=== PATIENT | female | born 1940 | race Caucasian/White ===

== ENCOUNTER 2018-05-31 12:59 | Observation (INO) | payer MEDICARE, BC ==
[~2018-05-31] VITALS: Ht 160 cm; Wt 68.5 kg
[2018-05-31] VITALS (10 sets, daily range): BP systolic 131–161; BP diastolic 54–69
--- NOTE | 2018-05-31 13:20 | NUR ---
PT DIRECT ADMITT FORM FOR ANEMIA R/O GI BLEED, PT ADMITTED VIA W/C STOOD AND TRANSFERRED TO SCALE THEN INTO BED WITH MIN ASSIST, ADMISSION ASSESSMENT COMPLETED SEE INTERVENTIONS. LUNGS CLEAR NO SHORTNESS OF BREATH NOTED ABD SOFT AND BS ACTIV PT DENIES BLACK STOOLS STATES LAST BM WAS YESTERDAY AND IT WAS BROWN, STATES HISTORY OF ANEMIA WITH IRON SUPPLEMENTS IN PAST BUT STATES SHE HASN'T BEEN TAKING THEM FOR A FEW WEEKS, SKIN WARM DRY AND INTACT WITH NO BREAKDOWN, SOME EDEMA NOTED TO FINGERS PT STATES ITS GOUT AND SHE TAKES MEDICATION FOR IT, ALSO STATES SHE RECENTLY MOVED HERE FROM [place] AND HAS HAD NO ENERGY AND "NEEDS A REST AFTER WALKING TO THE BATHROOM" ORIENTED TO ROOM AND UNIT, SAFETY MEASURES REINFORCED, CALL ARCINIEGA WITHIN REACH, WILL CONTINUE TO MONITOR
[2018-05-31 14:41] LABS: HEMATOCRIT 26.7 % (37.0-47.0); HEMOGLOBIN 7.9 g/dl (12.0-16.0); IMMATURE GRANULOCYTES 0.7 % (0.0-5.0); MEAN CELL VOLUME 75.9 fL CALC (80.0-100.0); MEAN CORPUSCULAR HGB 22.4 pG CALC (26.0-32.0); MEAN CORPUSCULAR HGB CONC 29.6 g/L CALC (32.0-36.0); NEUT# 5.49 thou/uL (2.00-7.15); RED BLOOD COUNT 3.52 mill/uL (4.20-5.60); RED CELL DISTRI WIDTH 15.7 % (11.5-15.5)
[2018-05-31 14:53] LABS: CREATININE 2.4 mg/dL (0.5-1.0); POTASSIUM 4.9 mmol/l (3.5-5.1)
--- NOTE | 2018-05-31 15:00 | NUR ---
PT RESTING OFFERS NO NEW COMPLAINTS CALL IN TO FOR DIET CHANGE, WILL CONTINUE TO MONITOR.
--- NOTE | 2018-05-31 17:04 | NUR ---
IV ACCESS OBTAINED EARLIER AND LABOWRK OBTAINED INCLUDING TYPE AND SCREEN, PT TOLERATED WELL, 1ST UNIT PRBC'S STARTED AT THIS TIME AFTER CONSENT OBTAINED.
--- NOTE | 2018-05-31 19:10 | NUR ---
1ST UNIT COMPLETE, DENTAL SALES REPRESENTATIVE TO LOCATE BSC, REPORT GIVEN TO ONCOMING NURSE ANUSHA Pierce
--- NOTE | 2018-05-31 19:30 | NUR ---
PT RESTING IN BED. VISITOR IN ROOM. PT IS ALERT AND ORIENTED X3. SHIFT ASSESSMENT COMPLETED AT THIS TIME. LASIX GIVEN PER MAR. 2ND UNIT OF PRBCS STARTED PER TTRANSFUSION RECORD WELL. IV PATENT. PLAN OF CARE REVIEWED WTIH PATIENT.CALL LIGHT IN REACH. WILL CONTINUE TO MONITOR.
--- NOTE | 2018-05-31 19:38 | NUR ---
PT STATES SHE TOOK HER GABAPENTIN FROM HOME PRIOR TO ARRIVAL TO HOSPITAL CAUSE SHE WANTED TO MAKE SURE SHE GOT IT TODAY BECAUSE SHE CAN'T SLEEP WITHOUT IT. EDUCATED REGARDING THAT MEDICATION IS ORDERED AND SCHEDULED FOR [address] SO SHE WILL GET TOMORROW IF STILL INPATIENT
--- NOTE | 2018-05-31 21:15 | NUR ---
2ND UNIT OF PRBCS COMPLETED. PT TOLERATED TRANSFUSION WELL VERBALIZES NO S/SX OF REACTION AT THIS TIME. CALL LIGHT IN REACH. WILL CONTINUE TO MONITOR.
--- NOTE | 2018-05-31 23:55 | NUR ---
PT RESTING IN BED WITH EYES CLOSED. RESP ARE EVEN AND UNLABORED. NO DISTRESS NOTED. CALL LIGHT IN REACH. WILL CONTINUE TO MONITOR.
--- NOTE | 2018-06-01 03:57 | NUR ---
PT RESTING IN BED WITH EYES CLOSED. RESP ARE EVEN AND UNLABORED. NO DISTRESS NOTED. CALL LIGHT IN REACH. WILL CONTINUE TO MONITOR.
[2018-06-01 04:26] VITALS: BP 127/68
[2018-06-01 05:27] LABS: HEMATOCRIT 30.8 % (37.0-47.0); HEMOGLOBIN 9.7 g/dl (12.0-16.0); IMMATURE GRANULOCYTES 0.7 % (0.0-5.0); MEAN CORPUSCULAR HGB 24.3 pG CALC (26.0-32.0); MEAN CORPUSCULAR HGB CONC 31.5 g/L CALC (32.0-36.0); NEUT# 3.72 thou/uL (2.00-7.15); RED CELL DISTRI WIDTH 15.6 % (11.5-15.5)
[2018-06-01 05:28] LABS: ALBUMIN 3.8 g/dL (3.2-5.0); BILIRUBIN, TOTAL 0.9 mg/dL (0.0-1.4); CREATININE 2.2 mg/dL (0.5-1.0); POTASSIUM 4.4 mmol/l (3.5-5.1); TOTAL PROTEIN 6.8 g/dL (6.3-8.2)
--- NOTE | 2018-06-01 07:35 | NUR ---
PT RESTING IN BED, ALERT AND ORIENTED, ASKING/DEMANDING FOR IVF TO BE STOPPED, DONE PER PT REQUEST, PT TAKING PO FLUIDS AND DIET WELL, NO S/S OF ACTIVE BLEED, DENIES PAIN OR DISCOMFORT, SKIN INTACT, PT ASKING ABOUT D/C TODAY, EDUCATED REGARDING D/C PROCESS, PT VERBALIZES UNDERSTANDING, CALL ARCINIEGA WITHIN REACH, WILL CONTINUE TO MONITOR.
[2018-06-01 08:03] VITALS: BP 148/64
--- NOTE | 2018-06-01 08:53 | NUR ---
INTO SEE PATIENT, PLAN OF CARE DISCUSSED INCLDUING D/C TODAY WITH FOLLOW UP LAB WIRK AND VISIT TO NEXT WEEK, ALL QUESTIONS ANSWERED, CALL ARCINIEGA WITHIN REACH, WILL CONTINUE TO MONITOR.
[2018-06-01] MEDS ORDERED: LEVOTHYROXIN50 MC1 PO (09:34)
[2018-06-01] MEDS ORDERED: VIBERZI100 MG PO (09:37)
[2018-06-01] MEDS ORDERED: ESOMEPRAZOLE MA40 MG PO (09:38)
[2018-06-01] MEDS ORDERED: COLCHICINE0.6 M2 PO (09:39)
[2018-06-01] MEDS ORDERED: LOPRESSOR50 M2 PO (09:40)
[2018-06-01] MEDS ORDERED: PROBENECID500 MG PO (09:40)
[2018-06-01] MEDS ORDERED: GRALISE300 MG PO (10:51)
--- NOTE | 2018-06-01 12:15 | NUR ---
PT RESTING AWAITING SPOUSE FOR TRANSPORT HOME, OFFERS NO NEW COMPLAINTS, CALL ARCINIEGA WITHIN REACH
--- NOTE | 2018-06-01 14:27 | NUR ---
Discharge instructions given. Patient verbalizes understanding of same. Discharged in stable condition via Wheelchair to Home with spouse. All belongings sent with pt.
== END 2018-06-01 14:27 | disposition home or self-care (01) ==
LOC: MS2 12:59
PROVIDERS: ADMIT Internal Medicine Geriatric Medicine; ATTEND Internal Medicine Geriatric Medicine
PROC: 30233N1 Transfusion of Nonautologous Red Blood Cells into Peripheral Vein, Percutaneous Approach (ICD-10-PCS; principal; 2018-05-31)
PROC: 30233N1 Transfusion of Nonautologous Red Blood Cells into Peripheral Vein, Percutaneous Approach (ICD-10-PCS; 2018-05-31)
DX: D64.9 Anemia, unspecified (principal); I10 Essential (primary) hypertension; I25.10 Atherosclerotic heart disease of native coronary artery without angina pectoris; M19.90 Unspecified osteoarthritis, unspecified site; E03.9 Hypothyroidism, unspecified; E78.5 Hyperlipidemia, unspecified; K21.9 Gastro-esophageal reflux disease without esophagitis; K27.9 Peptic ulcer, site unspecified, unspecified as acute or chronic, without hemorrhage or perforation
CPT/HCPCS: P9016

== ENCOUNTER 2018-09-06 15:16 | Observation (INO) | payer MEDICARE, BC ==
[~2018-09-06] VITALS: Ht 160 cm; Wt 68.7 kg
[2018-09-06] VITALS (10 sets, daily range): BP systolic 136–168; BP diastolic 64–72
[~2018-09-06 15:16] MED LIST: COLCHICINE0.6 M2 PO; ESOMEPRAZOLE MA40 MG PO; GRALISE300 MG PO; LEVOTHYROXIN50 MC1 PO; LOPRESSOR50 M2 PO; PROBENECID500 MG PO; VIBERZI100 MG PO
[2018-09-06 16:20] LABS: HEMATOCRIT 31.7 % (37.0-47.0); HEMOGLOBIN 9.2 g/dl (12.0-16.0); IMMATURE GRANULOCYTES 0.4 % (0.0-5.0); MEAN CELL VOLUME 74.4 fL CALC (80.0-100.0); MEAN CORPUSCULAR HGB 21.6 pG CALC (26.0-32.0); NEUT# 5.47 thou/uL (2.00-7.15); RED BLOOD COUNT 4.26 mill/uL (4.20-5.60); RED CELL DISTRI WIDTH 16.4 % (11.5-15.5)
[2018-09-06 16:23] LABS: URINE BILIRUBIN - DIPSTICK NEGATIVE (NEGATIVE); URINE BLOOD DIPSTICK NEGATIVE (NEGATIVE); URINE COLOR YELLOW; URINE GLUCOSE - DIPSTICK NEGATIVE (NEGATIVE); URINE KETONE NEGATIVE (NEGATIVE); URINE LEUK ESTERASE NEGATIVE (NEGATIVE); URINE NITRITE - DIPSTICK NEGATIVE (Negative); URINE PH 5.5 (4.5-8.0); URINE PROTEIN - DIPSTICK 30 mg/dL (NEG-TRACE); URINE UROBILINOGEN - DIPSTICK 0.2 E.U./dL (0.2)
[2018-09-06 16:27] LABS: URINE RBC 0-2 RBC/hpf (0-5); URINE SQUAMOUS EPITHELIAL CELL FEW EPI/hpf (0-FEW); URINE WBC 0-2 WBC/hpf (0-5)
[2018-09-06 16:31] LABS: CREATININE 1.8 mg/dL (0.5-1.0); POTASSIUM 4.4 mmol/l (3.5-5.1)
[2018-09-07 00:20] VITALS: BP 136/69
[2018-09-07 04:25] VITALS: BP 133/73
[2018-09-07 05:52] LABS: HEMATOCRIT 35.3 % (37.0-47.0); IMMATURE GRANULOCYTES 0.7 % (0.0-5.0); MEAN CELL VOLUME 75.3 fL CALC (80.0-100.0); MEAN CORPUSCULAR HGB 23.5 pG CALC (26.0-32.0); MEAN CORPUSCULAR HGB CONC 31.2 g/L CALC (32.0-36.0); NEUT# 5.41 thou/uL (2.00-7.15); RED BLOOD COUNT 4.69 mill/uL (4.20-5.60); RED CELL DISTRI WIDTH 16.2 % (11.5-15.5)
[2018-09-07 06:09] LABS: ALBUMIN 4.1 g/dL (3.2-5.0); BILIRUBIN, TOTAL 1.3 mg/dL (0.0-1.4); CHOLESTEROL HDL RATIO 3.7 (<4.4 (CALC)); CREATININE 1.7 mg/dL (0.5-1.0); POTASSIUM 4.1 mmol/l (3.5-5.1)
[2018-09-07 06:39] LABS: TSH, 3RD GENERATION 2.94 uIU/mL (0.47 - 4.68)
[2018-09-07 09:28] VITALS: BP 125/54
[2018-09-07 09:40] VITALS: BP 125/54
== END 2018-09-07 09:45 | disposition home or self-care (01) ==
LOC: MS2 15:16
PROVIDERS: ADMIT Internal Medicine Geriatric Medicine; ATTEND Internal Medicine Geriatric Medicine
PROC: 30233N1 Transfusion of Nonautologous Red Blood Cells into Peripheral Vein, Percutaneous Approach (ICD-10-PCS; principal; 2018-09-06)
PROC: 30233N1 Transfusion of Nonautologous Red Blood Cells into Peripheral Vein, Percutaneous Approach (ICD-10-PCS; 2018-09-06)
DX: D50.9 Iron deficiency anemia, unspecified (principal); I12.9 Hypertensive chronic kidney disease with stage 1 through stage 4 chronic kidney disease, or unspecified chronic kidney disease; N18.9 Chronic kidney disease, unspecified; E03.9 Hypothyroidism, unspecified; I25.10 Atherosclerotic heart disease of native coronary artery without angina pectoris; E78.5 Hyperlipidemia, unspecified; M06.9 Rheumatoid arthritis, unspecified; C44.629 Squamous cell carcinoma of skin of left upper limb, including shoulder; K21.9 Gastro-esophageal reflux disease without esophagitis; M10.9 Gout, unspecified; M19.90 Unspecified osteoarthritis, unspecified site
CPT/HCPCS: P9016

== ENCOUNTER → 2018-10-05 | Outpatient (REF) | payer MEDICARE, BC ==
[2018-10-05 10:16] LABS: IMMATURE GRANULOCYTES 0.4 % (0.0-5.0); MEAN CELL VOLUME 77.7 fL CALC (80.0-100.0); MEAN CORPUSCULAR HGB 23.3 pG CALC (26.0-32.0); NEUT# 5.18 thou/uL (2.00-7.15); RED BLOOD COUNT 5.15 mill/uL (4.20-5.60); RED CELL DISTRI WIDTH 18.6 % (11.5-15.5)
[2018-10-05 11:46] LABS: ALBUMIN 4.5 g/dL (3.2-5.0); BILIRUBIN, TOTAL 0.4 mg/dL (0.0-1.4); POTASSIUM 4.5 mmol/l (3.5-5.1); TOTAL PROTEIN 7.9 g/dL (6.3-8.2)
== END | disposition home or self-care (01) ==
LOC: LAB 09:32
PROVIDERS: ATTEND Internal Medicine Geriatric Medicine
DX: D64.9 Anemia, unspecified (principal); I10 Essential (primary) hypertension

== ENCOUNTER 2019-10-21 09:25 | Observation (INO) | payer MEDICARE, BC ==
[~2019-10-21] VITALS: Ht 162.6 cm; Wt 68.6 kg
[2019-10-21 10:09] LABS: HEMATOCRIT 23.9 % (37.0-47.0); IMMATURE GRANULOCYTES 0.6 % (0.0-5.0); MEAN CORPUSCULAR HGB 18.8 pG CALC (26.0-32.0); MEAN CORPUSCULAR HGB CONC 27.6 g/L CALC (32.0-36.0); NEUT# 4.26 thou/uL (2.00-7.15); RED BLOOD COUNT 3.52 mill/uL (4.20-5.60); RED CELL DISTRI WIDTH 17.8 % (11.5-15.5)
[2019-10-21 10:12] LABS: HEMOGLOBIN 6.6 g/dl (12.0-16.0); MEAN CELL VOLUME 67.9 fL CALC (80.0-100.0)
[2019-10-21 10:26] LABS: ALBUMIN 4.3 g/dL (3.2-5.0); BILIRUBIN, TOTAL 0.4 mg/dL (0.0-1.4); CREATININE 2.3 mg/dL (0.5-1.0); POTASSIUM 4.6 mmol/l (3.5-5.1); TOTAL PROTEIN 7.6 g/dL (6.3-8.2)
[2019-10-21 10:48] LABS: PROTHROMBIN TIME 10.7 SECONDS (9.0-12.5)
[2019-10-21 13:26] LABS: URINE BILIRUBIN - DIPSTICK NEGATIVE (NEGATIVE); URINE BLOOD DIPSTICK NEGATIVE (NEGATIVE); URINE COLOR YELLOW; URINE GLUCOSE - DIPSTICK NEGATIVE (NEGATIVE); URINE KETONE NEGATIVE (NEGATIVE); URINE LEUK ESTERASE NEGATIVE (NEGATIVE); URINE NITRITE - DIPSTICK NEGATIVE (Negative); URINE PH 5.5 (4.5-8.0); URINE PROTEIN - DIPSTICK NEGATIVE (NEG-TRACE); URINE UROBILINOGEN - DIPSTICK 0.2 E.U./dL (0.2)
[2019-10-21 13:30] VITALS: BP 189/72
[2019-10-21 14:46] VITALS: BP 205/82
[2019-10-21 18:15] VITALS: BP 141/59
[2019-10-21 18:52] VITALS: BP 149/60
[2019-10-22] VITALS (18 sets, daily range): BP systolic 116–167; BP diastolic 52–72
[2019-10-22 11:20] LABS: HEMOGLOBIN 8.2 g/dl (12.0-16.0); MEAN CELL VOLUME 72.4 fL CALC (80.0-100.0); MEAN CORPUSCULAR HGB 21.2 pG CALC (26.0-32.0); MEAN CORPUSCULAR HGB CONC 29.3 g/L CALC (32.0-36.0); RED BLOOD COUNT 3.87 mill/uL (4.20-5.60)
[2019-10-22 12:03] LABS: CREATININE 1.9 mg/dL (0.5-1.0); POTASSIUM 4.5 mmol/l (3.5-5.1)
[2019-10-23 03:45] VITALS: BP 141/67
[2019-10-23 05:25] LABS: HEMATOCRIT 27.2 % (37.0-47.0); HEMOGLOBIN 7.9 g/dl (12.0-16.0); MEAN CELL VOLUME 73.1 fL CALC (80.0-100.0); MEAN CORPUSCULAR HGB 21.2 pG CALC (26.0-32.0); RED BLOOD COUNT 3.72 mill/uL (4.20-5.60); RED CELL DISTRI WIDTH 19.9 % (11.5-15.5)
[2019-10-23 05:52] LABS: CREATININE 1.9 mg/dL (0.5-1.0); MAGNESIUM 1.7 mg/dL (1.6-2.3); POTASSIUM 4.4 mmol/l (3.5-5.1)
[2019-10-23 07:34] VITALS: BP 158/60
[2019-10-23 12:02] VITALS: BP 165/81
[2019-10-23] MEDS ORDERED: NORVASC PO (14:35)
[2019-10-23 15:23] VITALS: BP 167/70
[2020-05-29] MEDS ORDERED: TRIAMCINOLON0.11 EX (11:31)
[2020-05-30] MEDS ORDERED: FERR SULFATE325 MG PO (11:23)
== END 2019-10-23 15:48 | disposition home or self-care (01) ==
LOC: ED 09:25 → ED-I 11:21 → ED 11:32 → ED-I 11:33 → MS2 11:33
PROVIDERS: Family Medicine; Nurse Practitioner Family; ADMIT Internal Medicine; ATTEND Internal Medicine
PROC: 30233N1 Transfusion of Nonautologous Red Blood Cells into Peripheral Vein, Percutaneous Approach (ICD-10-PCS; principal; 2019-10-22)
PROC: 30233N1 Transfusion of Nonautologous Red Blood Cells into Peripheral Vein, Percutaneous Approach (ICD-10-PCS; 2019-10-22)
PROC: 0DB98ZX Excision of Duodenum, Via Natural or Artificial Opening Endoscopic, Diagnostic (ICD-10-PCS; 2019-10-22)
PROC: 0W3P8ZZ Control Bleeding in Gastrointestinal Tract, Via Natural or Artificial Opening Endoscopic (ICD-10-PCS; 2019-10-22)
PROC: 0DJD8ZZ Inspection of Lower Intestinal Tract, Via Natural or Artificial Opening Endoscopic (ICD-10-PCS; 2019-10-22)
DX: D62 Acute posthemorrhagic anemia (principal); K31.811 Angiodysplasia of stomach and duodenum with bleeding; K44.9 Diaphragmatic hernia without obstruction or gangrene; K57.31 Diverticulosis of large intestine without perforation or abscess with bleeding; K63.5 Polyp of colon; K64.8 Other hemorrhoids; I12.9 Hypertensive chronic kidney disease with stage 1 through stage 4 chronic kidney disease, or unspecified chronic kidney disease; N18.4 Chronic kidney disease, stage 4 (severe); E03.9 Hypothyroidism, unspecified; I25.10 Atherosclerotic heart disease of native coronary artery without angina pectoris; G62.9 Polyneuropathy, unspecified; K21.9 Gastro-esophageal reflux disease without esophagitis; R00.1 Bradycardia, unspecified
CPT/HCPCS: J1756; P9016